=== PATIENT | female | born 1960 | race Caucasian/White ===

== ENCOUNTER 2016-11-13 12:43 | Emergency (ER) | payer MEDICARE, MEDICAID ==
[~2016-11-13 12:43] MED LIST: AMOXIL-DPS500 MG PO; ASCORBIC ACID500 MG PO; CIPRO DPS500 MG PO; FISH OIL500 MG PO; GLUCOPHAGE-DPS500 MG PO; GLUCOPHAGE1000 MG PO; IBUPROFEN600 MG PO; JANUVIA100 MG PO; MAALOX DPS30 ML PO; MIRALAX PACKET17 GM PO; NITROSTAT0.4 MG SL; OMEPRAZOLE20 MG PO; ONGLYZA5 MG PO; SIMVASTATIN40 MG PO; SURFAK240 MG PO; SYNTHROID DP0.125 MG PO; SYNTHROID112 MCG PO; TYLENOL DPS325 MG PO; TYLENOL PO; WOMEN'S DAILY1 EAC3 PO; XARELTO20 MG PO; ZOFRAN4 MG PO
--- NOTE | 2016-11-19 10:35 | ER ---
ADMIT: 11/13/2016 RM/LOC: ER [facility] MR#: [id number] [id number] [address] [place] [address] Emergency Room Report SEX: F AGE: 56 : 1960 DATE: 11/13/2016 PRIMARY CARE: Erik Willis MD. CHIEF COMPLAINT: Back pain. HISTORY OF PRESENT ILLNESS: This is a 56-year-old female, who presents to the ER for 2 days duration of low back pain. The patient states she has a history of chronic back pain and sciatic pain. States this pain currently feels very similar to the past. She denies trying anything at home. No ibuprofen, Tylenol, ice or heat at this point. States the pain is severe, 10/10. Describes it as sharp in the right low back radiating to the right thigh. Denies any fever, chills, constipation, incontinence, nausea, vomiting, problems urinating, numbness, or weakness. Pain is worse with movement, relieved as she stay still. MEDICAL HISTORY: Significant for diabetes, hypertension, sciatic pain, and hyperlipidemia. COURSE IN THE ER: The patient is seen and examined. She has significant paravertebral muscle spasm on the right. Strength is equal in the lower extremities bilaterally. Sensation is intact on the lower extremities when compared bilaterally. Reflexes are 2+ when compared bilaterally. No saddle anesthesia. Straight leg raise testing is positive for pain on 5 degrees on the right side. She has full painless range of motion on the left. She does transfer from the wheelchair to the bed with great pain indicating she has pain in her right low back into her leg. She was given 15 of Toradol IM as well as 5 of Valium p.o. States this greatly improved her pain. She is able to move her right leg for painless range of motion. Stable to transfer, sit on the side of the bed without pain. IMPRESSION: Right sciatic pain with low back pain. DISPOSITION: The patient is provided with script for naproxen 500 mg p.o. b.i.d. x5 days with food. Apply ice or heat to the back per her preference. Continue all home medications. Continue to stay active. Follow up with Dr. Willis as needed. Questions are answered to the best of my ability and to the patient's satisfaction. Discharged in stable condition. BERTHA Mccallum / Agustín Torres MD / modl JOB #: [id number] CC: Agustín Torres MD, Attending Physician Erik Willis MD, Family Physician
== END 2016-11-13 15:00 | disposition home or self-care (01) ==
LOC: ER 12:43
DX: M54.41 Lumbago with sciatica, right side (principal); E11.9 Type 2 diabetes mellitus without complications; I10 Essential (primary) hypertension; E78.5 Hyperlipidemia, unspecified; Z88.2 Allergy status to sulfonamides; Z88.8 Allergy status to other drugs, medicaments and biological substances; Z79.899 Other long term (current) drug therapy